=== PATIENT | female | born 1980 | race Caucasian/White ===

== ENCOUNTER 2016-07-24 12:18 | Emergency (ER) | payer MEDICAID ==
[~2016-07-24] VITALS: Ht 160 cm; Wt 56.7 kg
[2016-07-24 12:35] VITALS: BP 133/88
[2016-07-24] MEDS ORDERED: NKM (12:41)
[2016-07-24] MEDS ORDERED: Famotidine 20 MG/ 2ML VIAL IVP ONE (13:00)
[2016-07-24] MEDS ORDERED: DiphenhydrAMINE 50mg/ml Inj IVP ONE (13:00)
--- NOTE | 2016-07-24 13:03 | Emergency Room Report ---
History of Present Illness General Chief Complaint: General Complaint Source: Patient (LILLIAN MENDIETA) Present Illness HPI The patient is a 36-year-old female who denies any medical history presenting for 4 months of malaise and total body itching. The patient has also noticed subjective fevers and productive cough which began one month prior. The patient has undergone multiple blood work including CBC, CMP, Lipid panel, thyroid panel, ALISSON which were all unremarkable. The patient has also received many medications including antibiotics and steroids which have not helped the symptoms at all. The patient states that she is now waiting for approval to receive CT abdomen and chest by her primary doctor.The patient denies any pain and denies other symptoms including headache, neck pain or stiffness, chest pain , shortness of breath, hemoptysis, abdominal pain, dysuria, hematuria, vaginal discharge, numbness or tingling, dizziness, blurred vision (LILLIAN MENDIETA) Allergies: Coded Allergies: No Known Allergies (Unverified , 07/24/16) Patient History Past Medical History: see triage record Pertinent Family History: none Reviewed Nursing Documentation: PMH: Agreed, PSxH: Agreed (LILLIAN MENDIETA) Nursing Documentation-PMH Past Medical History: No Stated History (LILLIAN MENDIETA) Review of Systems All Other Systems: negative except mentioned in HPI (LILLIAN MENDITEA) Physical Exam Vital Signs Date Time Temp Pulse Resp B/P Pulse Ox O2 Delivery O2 Flow Rate FiO2 07/24/16 12:35 98.4 84 16 133/88 98 Room Air Sp02 EP Interpretation: reviewed, normal General Appearance: no apparent distress, alert, GCS 15, non-toxic Head: normocephalic, atraumatic Eyes: bilateral eye PERRL, bilateral eye normal inspection ENT: hearing grossly normal, normal pharynx, no angioedema, normal voice Neck: full range of motion, supple/symm/no masses Respiratory: chest non-tender, lungs clear, normal breath sounds, speaking full sentences Cardiovascular #1: regular rate, rhythm, no edema Cardiovascular #2: 2+ carotid (R), 2+ carotid (L), 2+ radial (R), 2+ radial (L) , 2+ dorsalis pedis (R), 2+ dorsalis pedis (L) Gastrointestinal: normal bowel sounds, non tender, soft, non-distended, no guarding, no rebound Rectal: deferred Genitourinary: normal inspection, no CVA tenderness Musculoskeletal: back normal, gait/station normal, normal range of motion, non- tender Neurologic: alert, oriented x3, responsive, motor strength/tone normal, sensory intact, speech normal Psychiatric: judgement/insight normal, memory normal, mood/affect normal, no suicidal/homicidal ideation Reflexes: 3+ bicep (R), 3+ bicep (L), 3+ tricep (R), 3+ tricep (L), 3+ knee (R) , 3+ knee (L) Skin: normal color, no rash, warm/dry, well hydrated Lymphatic: no adenopathy (LILLIAN MENDIETA P.AMadisyn) Medical Decision Making PA Attestation Dr. Macias is my supervising physician. Patient management was discussed with my supervising physician (LILLIAN MENDITEA P.AMadisyn) Diagnostic Impression: Primary Impression: Urinary tract infection Additional Impression: Itching ER Course The patient is a 36-year-old female who denies any medical history presenting for 4 months of malaise and total body itching Differential diagnosis considered: Hepatitis, pancreatitis, mononucleosis, bronchitis, pneumonia, allergic reaction, eczema, among others PE: No apparent distress. A&Ox4 PERRL. EOMI. Normal mentation. RRR. No MRG Lungs CTA bilat Abdomen: Normal appearance. Non distended. No ecchymosis. Normal BS. Non TTP. No McBurney point tenderness. No guarding. Skin is warm and dry, no rashes, no discoloration labs: CBC and CMP unremarkable Urinalysis shows 5-10 white blood cells. Negative Chest x-ray unremarkable The patient is given IV fluids and IV Benadryl with no change. Patient will be discharged home with a prescription for Macrobid and was given ER precautions. Patient will follow up with PMD for further care. Laboratory Tests Test 07/24/16 13:10 White Blood Count 6.0 K/UL (4.8-10.8) Red Blood Count 4.80 M/UL (4.20-5.40) Hemoglobin 13.9 G/DL (12.0-16.0) Hematocrit 41.7 % (37.0-47.0) Mean Corpuscular Volume 87 FL (80-99) Mean Corpuscular Hemoglobin 29.1 PG (27.0-31.0) Mean Corpuscular Hemoglobin Concent 33.4 G/DL (32.0-36.0) Red Cell Distribution Width 12.4 % (11.6-14.8) Platelet Count 229 K/UL (150-450) Mean Platelet Volume 8.2 FL (6.5-10.1) Neutrophils (%) (Auto) 54.5 % (45.0-75.0) Lymphocytes (%) (Auto) 35.3 % (20.0-45.0) Monocytes (%) (Auto) 7.2 % (1.0-10.0) Eosinophils (%) (Auto) 1.7 % (0.0-3.0) Basophils (%) (Auto) 1.3 % (0.0-2.0) Urine Color Yellow Urine Appearance Slightly cloudy Urine pH 6.5 (4.5-8.0) Urine Specific [place] 1.010 (1.005-1.035) Urine Protein Negative (NEGATIVE) Urine Glucose (UA) Negative (NEGATIVE) Urine Ketones Negative (NEGATIVE) Urine Occult Blood Negative (NEGATIVE) Urine Nitrite Negative (NEGATIVE) Urine Bilirubin Negative (NEGATIVE) Urine Urobilinogen Normal MG/DL (0.0-1.0) Urine Leukocyte Esterase 2+ (NEGATIVE) H Urine RBC 0-2 /HPF (0 - 2) Urine WBC 5-10 /HPF (0 - 2) H Urine Squamous Epithelial Cells Moderate /LPF (NONE/OCC) H Urine Bacteria Few /HPF (NONE) Urine HCG, Qualitative Negative Sodium Level 140 mEQ/L (135-145) Potassium Level 4.4 mEQ/L (3.4-4.9) Chloride Level 100 mEQ/L (98-107) Carbon Dioxide Level 26 mEQ/L (20-30) Anion Gap 14 (5-15) Blood Urea Nitrogen 9 mg/dL (7-23) Creatinine 0.7 mg/dL (0.5-0.9) Estimate Glomerular Filtration Rate > 60 mL/min (>60) Glucose Level 106 mg/dL (74-106) Calcium Level 9.5 mg/dL (8.6-10.2) Total Bilirubin 0.5 mg/dL (0.0-1.2) Aspartate Amino Transferase (AST) 19 U/L (5-40) Alanine Aminotransferase (ALT) 21 U/L (3-33) Alkaline Phosphatase 45 U/L (35-104) Total Protein 6.4 g/dL (6.6-8.7) L Albumin 4.2 g/dL (3.5-5.2) Globulin 2.2 g/dL Albumin/Globulin Ratio 1.9 (1.0-2.7) Amylase Level 69 U/L (10-110) Lipase 47 U/L (< 60) Lab Results Impression CBC and CMP unremarkable Urinalysis shows 5-10 white blood cells. Negative (BERONICA MENDIETAY P.A.) ER Course Scribe documentation reviewed by me and is accurate. (Miguel Macias M.D.) Chest X-Ray Diagnostic Results EP Interpretation: Yes Findings: no consolidation, no effusion, no pneumothorax, no acute cardiopulmonary disease Number of Views: 1 PA Scribe Text I am acting as scribe for my supervising physician. My supervising physician's interpretation of the chest xrays are there is no consolidation, no effusion, no acute cardiopulmonary disease, no pneumothorax (BERONICA MENDIETAY P.A.) Last Vital Signs Date Time Temp Pulse Resp B/P Pulse Ox O2 Delivery O2 Flow Rate FiO2 07/24/16 12:35 98.4 84 16 133/88 98 Room Air Status: improved (BERONICA MENDIETAY P.A.) Last Vital Signs Date Time Temp Pulse Resp B/P Pulse Ox O2 Delivery O2 Flow Rate FiO2 07/24/16 14:26 75 14 123/64 98 Room Air 07/24/16 12:35 98.4 (Miguel Macias M.D.) Disposition: HOME, SELF-CARE Condition: Improved Scripts Diphenhydramine Hcl* (BENADRYL*) 25 Mg Capsule 25 MG ORAL Q6H Y for Itching, #15 CAP Prov: TERZIAN,LILLIAN P.A. 07/24/16 Cephalexin* (KEFLEX*) 250 Mg Capsule 250 MG ORAL EVERY 6 HOURS, #28 CAP 0 Refills Prov: TERZIAN,LILLIAN P.A. 07/24/16 Referrals: [facility],REFERRING (PCP) ANAMLILLIAN Grijalva Jul 24, 2016 13:03 Miguel Macias M.D. Jul 25, 2016 01:30
[2016-07-24 13:27] LABS: APPEARANCE,URINE SLIGHTLY CLOUDY; KETONES,URINE NEGATIVE (NEGATIVE); LEUKOCYTE ESTERASE ,URINE 2+ (NEGATIVE); NITRITE,URINE NEGATIVE (NEGATIVE); PH,URINE 6.5 (4.5-8.0); PROTEIN,URINE NEGATIVE (NEGATIVE); UROBILINOGEN,URINE NORMAL MG/DL (0.0-1.0)
[2016-07-24 13:31] LABS: BASOPHILS % (AUTO) 1.3 % (0.0-2.0); EOSINOPHILS % (AUTO) 1.7 % (0.0-3.0); LYMPHOCYTES % (AUTO) 35.3 % (20.0-45.0); MEAN CORPUSCULAR HEMOGLOBIN 29.1 PG (27.0-31.0); MEAN CORPUSCULAR HGB CONC 33.4 G/DL (32.0-36.0); MEAN CORPUSCULAR VOLUME 87 FL (80-99); MEAN PLATELET VOLUME 8.2 FL (6.5-10.1); MONOCYTES % (AUTO) 7.2 % (1.0-10.0); NEUTROPHILS % (AUTO) 54.5 % (45.0-75.0); PLATELET COUNT 229 K/UL (150-450); RED CELL DISTRIBUTION WIDTH 12.4 % (11.6-14.8)
[2016-07-24 13:42] LABS: BACTERIA,URINE FEW /HPF; RBC,URINE 0-2 /HPF (0 - 2); SQUAMOUS EPITHELIAL CELL,UR MODERATE /LPF (NONE/OCC)
[2016-07-24 13:53] LABS: ALANINE AMINOTRANSFERASE 21 U/L (3-33); ALBUMIN/GLOBULIN RATIO 1.9 (1.0-2.7); AMYLASE 69 U/L (10-110); ANION GAP 14 (5-15); ASPARTATE AMINO TRANSFERASE 19 U/L (5-40); CALCIUM 9.5 mg/dL (8.6-10.2); CARBON DIOXIDE 26 mEQ/L (20-30); CHLORIDE 100 mEQ/L (98-107); CREATININE 0.7 mg/dL (0.5-0.9); GLOMERULAR FILTRATION RATE > 60 mL/min (>60); HEMOLYSIS 8; LIPASE 47 U/L (< 60); POTASSIUM 4.4 mEQ/L (3.4-4.9); SODIUM 140 mEQ/L (135-145); TOTAL PROTEIN 6.4 g/dL (6.6-8.7)
[2016-07-24] MEDS ORDERED: KEFLEX250 MG ORAL (14:14)
[2016-07-24] MEDS ORDERED: BENADRYL25 MG ORAL (14:14)
[2016-07-24 14:26] VITALS: BP 123/64
--- NOTE | 2016-07-25 10:29 | Diagnostic Imaging Report ---
Indication: COUGH Technique: Single portable AP view of the chest. Findings: Comparison: None. The bones and extra pulmonary soft tissues, cardiomediastinal silhouette, pulmonary vasculature and parenchyma, and pleural surfaces are unremarkable. IMPRESSION: Negative portable AP chest.
== END 2016-07-24 14:28 | disposition home or self-care (01) ==
LOC: EMR 12:59
DX: N39.0 Urinary tract infection, site not specified (principal); L29.9 Pruritus, unspecified; R05 Cough
CPT/HCPCS: 36415; 71010; 80053; 81003; 81025; 82150; 83690; 85025; 96360; 96374; 96375; 99284; J1200; S0028